=== PATIENT | male | born 1990 | race Caucasian/White ===

== ENCOUNTER 2019-10-15 13:47 | Emergency (ER) | payer OTHER, SELFPAY ==
--- NOTE | ~2019-10-15 | XR_ITS ---
XR shoulder RT min 2V DATE: 10/15/2019 14:07 INDICATION: Injury 9 years ago. Right shoulder pain. TECHNIQUE: 4 views COMPARISON: None FINDINGS: No fracture or dislocation, periosteal reaction or bone destruction or abnormal soft tissue calcification. IMPRESSION: Negative Reviewed, dictated and finalized at location A. IMPRESSION: Negative
[2019-10-15 13:58] VITALS: BP 129/83; PULSE 67; RESP 18; TEMP 36.8; O2SAT 100
--- NOTE | 2019-10-15 13:59 | ED.GENADULT ---
HPI - General Adult General Chief complaint: Extremity Injury, Upper Stated complaint: r shoulder injury Time Seen by Provider: 10/15/19 13:49 Source: patient Mode of arrival: ambulatory Limitations: no limitations History of Present Illness HPI narrative: Patient is a 29-year-old male who presents to the emergency department for a chronic history of worsening right shoulder pain. Patient states he has had shoulder pain since high school, over 10 years, which is become more chronic in nature. Patient experiences daily, aching shoulder pain, worsened with movement. He states that he initially injured it after pitching injury in high school. No recent falls or injury. He states that he can raise his right arm to the level of his shoulder, but if he goes above the level of the shoulder there is extreme pain. Patient denies any neck pain, no chest pain. No shortness of breath. Patient has not been taking any medication for the pain. At the time of assessment, patient is able to range the shoulder well and is currently using that arm to text on his phone. Patient denies any numbness in his hands or fingers. Related Data Allergies Allergy/AdvReac Type Severity Reaction Status Date / Time amoxicillin Allergy Unknown Vomiting Verified 05/13/19 15:05 Review of Systems Review of Systems: Narrative: CONSTITUTIONAL: Denies fever CARDIOVASCULAR: Denies chest pain RESPIRATORY: Denies cough or dyspnea. GASTROINTESTINAL: Denies abdominal pain SKIN: Denies rash MUSCULOSKELETAL: Denies back pain NEUROLOGIC: Denies headache PMFSH Past Medical History Medical History No significant past medical history Surgical History Surgical History No significant past surgical history Social History Social History Smoking status: Never smoker Alcohol intake: current Gender identity (if verbalized by the patient): Male Exam Narrative: Exam Narrative: GENERAL: Awake, alert, conversant HEAD: Normocephalic, atraumatic. EYES: PERRLA and EOMI. ENT: Nares clear, no rhinorrhea or epistaxis. Mucous membranes moist. NECK: Supple. CHEST: No respiratory distress, breathing even and non labored HEART: Regular rate, sinus rhythm ABDOMEN:Non distended, non tender EXTREMITIES: Patient has active range of motion in the right shoulder, abduction and causes pain in the right deltoid. No back pain. Intact strength with internal and external rotation. Positive Neer sign. No effusion. Intact sensation over the deltoid. Radial pulse 2+. Intact sensation median, ulnar, radial nerve. Combat Control strength is 5 out of 5. No squaring off of the shoulder, deformity or ecchymoses. SKIN: Warm, dry, no rash. NEURO:No focal deficits. Alert and oriented x3 Course Course Emergency Course: Patient presents with chronic, worsening shoulder pain without sign of intra-articular infection or sign of cellulitis. There is no effusion. No deformity. Osseous imaging is unremarkable for fracture. At this point, symptoms are most consistent with capsulitis, possibly adhesive capsulitis from an early rotator cuff injury. I feel patient would benefit from anti-inflammatories, PCP versus orthopedic surgery follow-up and conservative management. Patient was then discharged home. Vital Signs Vital signs: Vital Signs Temperature 36.8 C 10/15/19 13:58 Pulse Rate 67 10/15/19 13:58 Respiratory Rate 18 10/15/19 13:58 Blood Pressure 129/83 10/15/19 13:58 Pulse Oximetry 100 10/15/19 13:58 Temperature 36.8 C 10/15/19 13:58 Pulse Rate 67 10/15/19 13:58 Respiratory Rate 18 10/15/19 13:58 Blood Pressure 129/83 10/15/19 13:58 Pulse Oximetry 100 10/15/19 13:58 Medical Decision Making Vital Signs Vital Signs: Vital Signs Temperature 36.8 C 10/15/19 13:58 Pulse Rate 67 10/15/19 13
[2019-10-15] MEDS: ACETAMINOPHEN 500 MG TABLET 1000 MG PO (14:35)
[2019-10-15] MEDS: IBUPROFEN 400 MG TABLET PO (14:35)
== END 2019-10-15 14:43 | disposition home or self-care (01) ==
PROVIDERS: Emergency Provider Emergency Medicine; PCP Internal Medicine Gastroenterology
DX: M77.9 Enthesopathy, unspecified (principal); S46.911A Strain of unspecified muscle, fascia and tendon at shoulder and upper arm level, right arm, initial encounter; X58.XXXA Exposure to other specified factors, initial encounter
CPT/HCPCS: 73030; 99283; A9270

== ENCOUNTER 2020-01-08 09:51 | Outpatient (CLI) | payer OTHER, SELFPAY ==
--- NOTE | 2020-01-08 11:00 | NEURO_ITS ---
Patient Number: [id number] Impression: # Complains of numbness of right hand. # Normal nerve conduction study including F-waves. # Normal needle/EMG exam. # Not diagnostic of electrical Carpal Tunnel Syndrome or ulnar neuropathy. Nerve Conduction Studies Anti Sensory Summary Table Stim Site NR Peak (ms) P-T Amp (?V) Site1 Site2 Delta-P (ms) Dist (cm) Mehdi (m/s) Right Median Anti Sensory (2-3nd Digit) Wrist 2.6 75.7 Wrist 2-3nd Digit 2.6 14.0 54 Wrist 2.6 45.8 Wrist 2-3nd Digit 2.6 14.0 54 Right Radial Anti Sensory (Base 1st Digit) Wrist 1.9 20.3 Wrist Base 1st Digit 1.9 0.0 Right Ulnar Anti Sensory (5th Digit) Wrist 2.7 24.1 Wrist 5th Digit 2.7 14.0 52 Motor Summary Table Stim Site NR Onset (ms) O-P Amp (mV) Site1 Site2 Delta-0 (ms) Dist (cm) Mehdi (m/s) Right Median Motor (Abd Poll Brev) Wrist 2.9 2.5 Elbow Wrist 4.8 30.0 62 Elbow 7.7 2.6 Right Ulnar Motor (Abd Dig Minimi) Wrist 2.3 7.2 A Elbow Wrist 5.4 31.0 57 A Elbow 7.7 6.7 F Wave Studies NR F-Lat (ms) L-R F-Lat (ms) Right Median (Mrkrs) (Abd Poll Brev) 28.46 Right Ulnar (Mrkrs) (Abd Dig Min) 28.59 EMG Side Muscle Nerve Root Ins Act Fibs Amp Dur Recrt Comment Right 1stDorInt Ulnar C8-T1 Nml Nml Nml Nml Nml Right Ext Indicis Radial (Post Int) C7-8 Nml Nml Nml Nml Nml Right Ext Digitorum Radial (Post Int) C7-8 Nml Nml Nml Nml Nml Right BrachioRad Radial C5-6 Nml Nml Nml Nml Nml Right PronatorTeres Median C6-7 Nml Nml Nml Nml Nml Right Abd Poll Brev Median C8-T1 Nml Nml Nml Nml Nml MTDD
== END 2020-01-08 09:52 | disposition home or self-care (01) ==
LOC: ANHNEURO 09:53
PROVIDERS: PCP Internal Medicine Gastroenterology; Visit Provider Family Medicine
DX: G56.01 Carpal tunnel syndrome, right upper limb (principal)
CPT/HCPCS: 95886; 95909

== ENCOUNTER 2022-07-21 14:25 | Emergency (ER) | payer OTHER, SELFPAY ==
--- NOTE | ~2022-07-21 | XR_ITS ---
EXAMINATION: XR knee RT min 4V DATE: 07/21/2022 15:50 INDICATION: Right knee pain and swelling. TECHNIQUE: 4 views of right knee including standing views on 5 radiographs were obtained. COMPARISON: None. FINDINGS: Bone alignment is normal. No fracture. There is mild osteoarthritis of medial and patellofe moral compartments characterized by tiny osteophytes. No joint space narrowing. No knee joint effusio n. IMPRESSION: 1. Mild right knee osteoarthritis. Reviewed, dictated and finalized at location A. P IRON CUTTER
[2022-07-21 14:28] VITALS: BP 135/70; PULSE 81; RESP 18; TEMP 36.6; O2SAT 98
--- NOTE | 2022-07-21 15:43 | ED.GENADULT ---
HPI - General Adult General Chief complaint: Extremity Problem,Nontraumatic Stated complaint: R knee swelling and pain x several days Time Seen by Provider: 07/21/22 15:34 History of Present Illness HPI narrative: Male presenting to the emergency department for evaluation of right knee pain. Patient states the patient woke up with pain on Monday patient reports he does have some associated swelling of that. Patient reports he did take ibuprofen for pain control this improved. Patient denies any lower extremity tenderness to palpation. Patient denies any lower extremity swelling. 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 Related Data Allergies Allergy/AdvReac Type Severity Reaction Status Date / Time amoxicillin Allergy Unknown Vomiting Verified 07/21/22 14:26 Review of Systems Review of Systems: CONSTITUTIONAL: Denies fever, chills, or sweats. EYES: Denies visual changes, redness, or discharge. ENT: Denies rhinorrhea, congestion, sore throat, or otalgia. CARDIOVASCULAR: Denies chest pain, palpitations, or edema. RESPIRATORY: Denies cough or dyspnea. GASTROINTESTINAL: Denies abdominal pain, nausea, vomiting, or diarrhea. GENITOURINARY: Denies dysuria or hematuria. SKIN: Denies rash or itching. MUSCULOSKELETAL: See HPI NEUROLOGIC: Denies headache, numbness, or weakness. PSYCHIATRIC: Denies anxiety or depression. [facility] Past Medical History Medical History (Updated 07/21/22 @ 21:34 by Subhash Rogers MD) No significant past medical history Surgical History Surgical History No significant past surgical history Social History Social History Smoking status: Never smoker Alcohol intake: current Gender identity (if verbalized by the patient): Male Exam Narrative: APPEARANCE: Well appearing, no pain, no distress, well-nourished. HEAD: normocephalic, atraumatic. EYES: PERRLA/EOMI, conjunctivae clear. NOSE: Normal no drainage NECK: Supple. No adenopathy, no masses. RESPIRATORY: Airway patent, respirations nonlabored. Clear to auscultation bilaterally, no rales, rhonchi, wheezing. CARDIOVASCULAR: Regular rate and rhythm without murmurs rubs or gallops. ABDOMINAL: Soft, nontender, nondistended, normal bowel sounds MUSCULOSKELETAL: Right medial knee tenderness to palpation. No ecchymosis, no effusion. No lower extremity tenderness to palpation. No lower extremity edema or erythema. NEURO: Alert. Cranial nerves II through XII intact. Grossly intact SKIN: Warm, dry. Normal Color Course Course Emergency Course: 32-year-old male with right knee pain. Differential diagnosis does include osteo arthritis, ligament injury, fracture. X-ray was negative for acute fracture or dislocation. No evidence of cellulitis or significant effusion. Patient does have medial tenderness to palpation. Patient may have an underlying ligament injury. X-ray did show evidence of osteoarthritis. Patient declined the use of crutches. Patient was provided an Gonzalez wrap for comfort. Patient was encouraged to have close follow-up with his primary care physician. Vital Signs Vital signs: Vital Signs Temperature 97.8 F 07/21/22 14:28 Pulse Rate 81 07/21/22 14:28 Respiratory Rate 18 07/21/22 14:28 Blood Pressure 135/70 07/21/22 14:28 Pulse Oximetry 98 07/21/22 14:28 Oxygen Delivery Room Air 07/21/22 14:28 Temperature 97.8 F 07/21/22 14:28 Pulse Rate 81 07/21/22 14:28 Respiratory Rate 18 07/21/22 14:28 Blood Pressure 135/70 07/21/22 14:28 Pulse Oximetry 98 07/21/22 14:28 Oxygen Delivery Room Air 07/21/22 14:28 Medical Decision Making Vital Signs Vital Signs: Vital Signs Temperature 97.8 F 07/21/22 14:28 Pulse Rate 81 07/21/22 14:28 Respiratory Rate 18 07/21/22 14:28 Blood Pressure 135/70 07/21/22 14:28 Pulse Oximetry 98 07/21/22 14:28 Oxygen Delivery Room Air
== END 2022-07-21 16:53 | disposition home or self-care (01) ==
PROVIDERS: Emergency Provider Emergency Medicine
DX: M25.561 Pain in right knee (principal); D68.51 Activated protein C resistance; M17.11 Unilateral primary osteoarthritis, right knee
CPT/HCPCS: 73564; 99283

== ENCOUNTER 2025-04-27 13:47 | Emergency (ER) | payer OTHER, SELFPAY ==
--- NOTE | ~2025-04-27 | CT_ITS ---
EXAMINATION: CT abdomen pelvis wo con, 04/27/2025 14:00 CARDING MACHINE FEEDER HISTORY: hematuria COMPARISON: No comparisons available. TECHNIQUE: CT scan of the abdomen and pelvis was performed without IV contrast. One or more of the following dose reduction techniques were used: automated exposure control, adjustment of the mA and/or kV according to patient size, use of iterative reconstruction technique. Unless otherwise stated, incidental findings do not require dedicated follow up imaging FINDINGS: CT abdomen: LUNG BASES: The lung bases are clear. The visualized portions of the heart and pericardium are unremarkable. LIVER: Severe hepatic steatosis. SPLEEN: Unremarkable, no splenomegaly. KIDNEYS: Right Kidney: Unremarkable. No calculi. No hydronephrosis. Left Kidney: Unremarkable. No calculi. No hydronephrosis ADRENAL GLANDS: Unremarkable. PANCREAS: Unremarkable. GALLBLADDER/BILIARY: Unremarkable. No biliary dilatation. STOMACH AND ESOPHAGUS: Visualized stomach and esophagus within normal limits. BOWEL/MESENTERY: Moderate fecal content, no colitis or diverticulitis. Appendix normal. Nonspecific stranding in the mesentery. No thickened or dilated loops of small bowel. ADENOPATHY/RETROPERITONEUM: No lymphadenopathy. AORTA/VASCULATURE: Normal caliber aorta. FREE FLUID OR FREE AIR: None. CT pelvis: SOLID ORGANS/REPRODUCTIVE: Unremarkable. BLADDER: Within normal limits. OSSEOUS STRUCTURES: No acute osseous abnormality.No suspicious lesions. OVERLYING SOFT TISSUES: Unremarkable. IMPRESSION: No acute intra-abdominal process. Reviewed, dictated and finalized at location P. ING MACHINE FEEDER
--- OUTSIDE RECORDS SUMMARY | 2025-04-27 13:49 | XMS_ITS | Clinical Summary ---
Author Organization [facility] Swagsy ROSSTON Address [address] [place] [id number] Care Team Providers Care Stone Trimmer Name Role Phone Marjan Perdomo MD Primary Care Provider [phone] Allergies Active Allergy Reactions Criticality Noted Date Comments Amoxicillin Rash Low 09/13/2024 Medications meloxicam (MOBIC) 7.5 mg tabletIndicatio ns:Chronic right shoulder pain Take 1-2 Tablets (7.5-15 mg) by mouth daily. 60 Tablet 1 09/13/2024 Active Active Problems No known active problems Encounters Date Type Department Care Team Description 03/25/2025 External Device Data [facility] ABSTRACTION Provider, Abstract 02/04/2025 External Device Data [facility]STRACTION Provider, Abstract from Last 3 Months Immunizations Immunization Administration Dates Next Due (ADACEL/BOOSTRIX)(10 YR UP) TDAP VACCINE, 0.5ML, IM 09/13/2024 Family History Medical History Relation Name Comments Autism Brother DVT Father Factor V Leiden Father Schizophrenia Mother Asthma Sister 1 Relation Name Status Comments Brother Alive Father Alive Mother Alive Sister 1 Alive Sister 2 Alive allergic to frandy onut Social History Tobacco Use Types Packs/Day Years Used Date Smoking Tobacco: Some Days Cigars Smokeless Tobacco: Never Comments:Cigar= once a week at most since 2013 NO HISTORY of cigarette, chew or other forms of nicotine Alcohol Use Standard Drinks/Week Comments Yes 6 (1 standard drink = 0.6 oz pur e alcohol) Sex and Gender Information Value Date Recorded Sex Assigned at Not on file Legal Sex Male 8:37 AM CDT Gender Identity Not on file Sexual Orientation Not on file Last Filed Vital Signs Vital Sign Reading Time Taken Comments Blood Pressure 110/60 09/17/2024 7:25 AM CDT Pulse 70 09/13/2024 8:45 AM CDT Temperature - - Respiratory Rate 18 09/13/2024 8:45 AM CDT Oxygen Saturation 95% 09/13/2024 8:45 AM CDT Inhaled Oxygen Concentration - - Weight 156.5 kg (345 lb) 09/17/2024 7:25 AM CDT Height 182.9 cm (6') 09/17/2024 7:25 AM CDT Body Mass Index 46.79 09/17/2024 7:25 AM CDT Plan of Treatment Health Maintenance Due Date Last Done Comments HEPATITIS B VACCINES (1 of 3 - 19+ 3-dose series) 05/2009 HPV VACCINES (1 - 3-dose SCDM series) 2018 INFLUENZA VACCINE (#1) 2024 DTAP/TDAP/TD VACCINES (2 - Td or Tdap) 09/13/2034 Insurance [facility] ACCESS Care Teams Stone Trimmer Relationship Specialty Start Date End Date Marjan Perdomo MD [address] [place] [id number] PCP - General Internal Medicine 09/13/24
[2025-04-27 13:54] VITALS: BP 149/92; PULSE 63; RESP 20; TEMP 36.4; O2SAT 100
[2025-04-27 14:19] LABS: Add Urine Microscopic? YES; Appearance Urine Cloudy (Clear); Glucose Urine UA Negative (Negative); Leukocyte Esterase Ur Trace LEU/UL (Negative); Nitrate Urine Negative (Negative); Non Pathogenic Casts 0-2; Specific Grav Ur 1.015 (1.001-1.035)
--- NOTE | 2025-04-27 14:44 | ED.MALEGU ---
HPI - Male Genitourinary General Chief complaint: Urogenital-Male Stated complaint: blood in urine Time Seen by Provider: 04/27/25 14:02 Related Data Allergies Allergy/AdvReac Type Severity Reaction Status Date / Time amoxicillin Allergy Unknown Vomiting Verified 04/27/25 13:57 [facility] Past Medical History Medical History (Updated 04/27/25 @ 14:46 by Boni Bang MD) No significant past medical history Surgical History Surgical History No significant past surgical history Social History Social History Smoking status: Never smoker Alcohol intake: current Gender identity (if verbalized by the patient): Male Course Vital Signs Vital signs: Vital Signs Temperature 97.6 F 04/27/25 13:54 Pulse Rate 63 04/27/25 13:54 Respiratory Rate 20 04/27/25 13:54 Blood Pressure 149/92 H 04/27/25 13:54 Pulse Oximetry 100 04/27/25 13:54 Oxygen Delivery Room Air 04/27/25 13:54 Temperature 97.6 F 04/27/25 13:54 Pulse Rate 63 04/27/25 13:54 Respiratory Rate 20 04/27/25 13:54 Blood Pressure 149/92 H 04/27/25 13:54 Pulse Oximetry 100 04/27/25 13:54 Oxygen Delivery Room Air 04/27/25 13:54 MDM - Male Genitourinary Lab Data Labs: Lab Results 04/27/25 Range/Units 14:05 Urine Color Yellow (Yellow) Urine Appearance Cloudy H (Clear) Urine pH 5.5 (5.0-9.0) Ur Specific [place] 1.015 (1.001-1.035) Urine Protein Negative (Negative) mg/dL Urine Glucose (UA) Negative (Negative) mg/dL Urine Ketones Negative (Negative) mg/dL Ur Blood (Man) 3+ H (Negative) Urine Nitrate Negative (Negative) Urine Bilirubin Negative (Negative) Urine Urobilinogen 1.0 (<2.0) mg/dL Leukocyte Esterase Rfl Trace H (Negative) SARBJIT/UL Urine RBC >100 H (0-2) /hpf Urine WBC 0-5 (0-3) /hpf Ur Squamous Epith Cells None seen (Few) /hpf Urine Bacteria None seen /hpf Urine Casts 0-2 Discharge Plan Discharge Clinical Impression: Hematuria Patient Disposition: Home Condition: Stable Instructions: Kidney Stones (ED), Hematuria (ED) Additional Instructions: It is felt that the blood in your urine is likely related to recently passed kidney stone. There were no additional kidney stone seen on your CT scan. Return to the ER if you have additional concerns. Patient Language: Italian Prescriptions: No Action ibuprofen 400 mg tablet 400 mg PO TID PRN (Reason: fever or pain) 10 Days Qty: 30 0RF acetaminophen 500 mg capsule 500 mg PO Q6H PRN (Reason: fever or pain) Qty: 30 0RF Follow-up/Referrals: Angelina Em MD [Physician, Urology] - 2 Weeks PHYSICIAN,DRIVER LICENSE TECHNICIAN [Primary Care Provider, Internal Medicine]
== END 2025-04-27 14:57 | disposition home or self-care (01) ==
PROVIDERS: Emergency Provider Emergency Medicine
DX: R31.9 Hematuria, unspecified (principal)
CPT/HCPCS: 74176; 81001; 99284